=== PATIENT | female | born 1995 | race Caucasian/White ===

== ENCOUNTER 2019-06-08 15:12 | Emergency (ER) | payer MEDICAID ==
[~2019-06-08] VITALS: Ht 162.6 cm; Wt 99.3 kg
[2019-06-08 15:38] VITALS: BP 121/58
--- NOTE | 2019-06-08 15:42 | NUR ---
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
--- NOTE | 2019-06-08 16:14 | NUR ---
Patient ambulated to chair C
--- NOTE | 2019-06-08 16:15 | NUR ---
C/O SUDDEN ONSET OF RIGHT SIDED NECK PAIN AND TO FACE SHARP PAIN ADDS PAIN INITIATED TO LEFT HAND TODAY---DENIES RECENT INJURY/FALL/TRAUMA AMBULATORY WITH STEADY GAIT --CURRENTLY SEATING UPRIGHT ON CHAIR WITH NO GRIMACE OR MOAN, AWAITS PROVIDERS JAZMIN
[2019-06-08] MEDS: DEXAMETHASONE 10 MG/ML VIAL IM ONE (17:11)
[2019-06-08] MEDS: KETOROLAC 30 MG/ML VIAL IM ONE (17:12)
--- NOTE | 2019-06-08 17:17 | NUR ---
IM MEDS GIVEN NADR AT THIS TIME
[2019-06-08 17:43] VITALS: BP 119/57
== END 2019-06-08 17:44 | disposition home or self-care (01) ==
LOC: MED 15:12
DX: S16.1XXA Strain of muscle, fascia and tendon at neck level, initial encounter (principal); X58.XXXA Exposure to other specified factors, initial encounter; Y93.89 Activity, other specified; Y92.89 Other specified places as the place of occurrence of the external cause; Y99.8 Other external cause status
CPT/HCPCS: 81002; 81025; 82948; 96372; 99283; J1100; J1885

== ENCOUNTER 2021-01-27 19:09 | Emergency (ER) | payer MEDICAID ==
[~2021-01-27] VITALS: Ht 160 cm; Wt 103.0 kg
[2021-01-27 19:25] VITALS: BP 133/75
--- NOTE | 2021-01-27 19:28 | NUR ---
TO LOBBY A/W BED VIA WHEELCHAIR
--- NOTE | 2021-01-27 20:19 | NUR ---
PT TAKEN TO BED 3
--- NOTE | 2021-01-27 20:21 | NUR ---
25 y.o female presents to the ed with low back pain. pain is 10/10 that is sharp and feels like a shock going down the leg. [place] pt felt the pain. pt had difficulty speaking along with the pain but no c.o sob or c/p. PMH: N.A ALLERGIES: NKA
[2021-01-27] MEDS ORDERED: KETOROLAC 60 MG/2 ML VIAL IM ONE (20:30)
--- NOTE | 2021-01-27 21:37 | NUR ---
Dr. Buckner examining patient.
[2021-01-27] MEDS ORDERED: MORPHINE SULFATE 4 MG/ML SYR IM ONE (21:40)
[2021-01-27] MEDS ORDERED: IBUP-2213 PO (22:32)
[2021-01-27] MEDS ORDERED: ACET-8386 PO (22:32)
[2021-01-27 23:50] VITALS: BP 121/75
--- NOTE | 2021-01-27 23:50 | NUR ---
Patient discharged with v/s stable. Written and verbal after care instructions given and explained. pt pain is a 7/10 and is at a tolerable level. Patient alert, oriented and verbalized understanding of instructions. Ambulatory with steady gait. All questions addressed prior to discharge. ID band removed. Patient advised to follow up with PMD. Rx of norco and ibuprofen given. Patient educated on indication of medication including possible reaction and side effects. Opportunity to ask questions provided and answered.
== END 2021-01-27 23:50 | disposition home or self-care (01) ==
LOC: MED 19:09
DX: M54.5 Low back pain (principal)
CPT/HCPCS: 81002; 81025; 96372; 99284; J1885; J2270